=== PATIENT | male | born 1955 | race Caucasian/White ===

== ENCOUNTER 2019-06-25 08:34 | Day surgery (SDC) | payer BC ==
[2019-06-25] MEDS ORDERED: Midazolam 1 MG/ML 2 ML SDV IV ONE (08:35)
[2019-06-25] MEDS ORDERED: Propofol 200 MG/20 ML SDV IV ONE (08:35)
[2019-06-25] MEDS ORDERED: Sodium Chloride 0.9% 10 ML Syringe FLUSH PRN (09:00)
[2019-06-25] MEDS: Lactated Ringers 1,000 ML IV SCH (09:30)
--- NOTE | 2019-06-25 11:09 | PCM.OPNOTE ---
- General Post-Op/Procedure Note Date of Surgery/Procedure: 06/25/19 Operative Procedure(s): c scope with bx Findings: diverticulosis transverse colon polyp Pre Op Diagnosis: screening Post-Op Diagnosis: diverticulosis. transverse colon polyp Anesthesia Technique: MAC Primary Surgeon: Fletcher Gaytan Anesthesia Provider: Yarely Terrell Pathology: transverse colon polyp Complications: None Condition: Good Free Text/Narrative:: see dictation
--- NOTE | 2019-06-25 17:38 | OR ---
DATE OF OPERATION: 06/25/2019 SURGEON: Fletcher Gaytan MD PROCEDURE PERFORMED: Colonoscopy, cold forceps biopsy. PREOPERATIVE DIAGNOSIS: Colon cancer screening. POSTOPERATIVE DIAGNOSIS: Transverse colon polyp. INDICATIONS FOR PROCEDURE: This is a 63-year-old white male, referred for screening colonoscopy. He offered and accepted same. DESCRIPTION OF OPERATION: After an excellent IV sedation was administered, digital rectal exam was performed. No marked abnormality was noted. Flexible colonoscope was inserted and advanced to the cecum. The prep was excellent. The following findings were noted: Ascending colon, unremarkable. Transverse colon, a small polypoid lesion, biopsied and sent for permanent. Descending colon, unremarkable. Sigmoid, scattered diverticulosis. Rectum and anus, unremarkable. Colon was deflated. Scope was removed. The patient tolerated the procedure well and was taken to Recovery. Results by letter. /[id number] /ALYSA
== END 2019-06-25 11:55 | disposition home or self-care (01) ==
LOC: FB.SDS 08:34
PROVIDERS: ATTEND Surgery
DX: Z12.11 Encounter for screening for malignant neoplasm of colon (principal); D12.3 Benign neoplasm of transverse colon; K57.30 Diverticulosis of large intestine without perforation or abscess without bleeding; I10 Essential (primary) hypertension; E78.2 Mixed hyperlipidemia; E03.9 Hypothyroidism, unspecified; I25.10 Atherosclerotic heart disease of native coronary artery without angina pectoris; K21.9 Gastro-esophageal reflux disease without esophagitis; Z87.891 Personal history of nicotine dependence; Z79.82 Long term (current) use of aspirin; Z79.01 Long term (current) use of anticoagulants; Z79.899 Other long term (current) drug therapy; Z95.5 Presence of coronary angioplasty implant and graft
CPT/HCPCS: 88305; J2250; J2704; J7120

== ENCOUNTER 2023-10-12 06:15 | Day surgery (SDC) | payer MEDICARE, BC ==
[~2023-10-12 06:15] MED LIST: Sodium Chloride 0.9% 10 ML Syringe FLUSH PRN
[2023-10-12] MEDS ORDERED: Propofol 200 MG/20 ML SDV IV ONE (06:16)
[2023-10-12] MEDS ORDERED: Midazolam 1 MG/ML 2 ML SDV IV ONE (06:16)
[2023-10-12] MEDS ORDERED: Lidocaine 2% 100 MG/5 ML Syringe IVPUSH ONE (06:16)
[2023-10-12] MEDS: Lactated Ringers 1,000 ML IV SCH (07:10)
[2023-10-12] MEDS: Simethicone Drops 40 MG/0.6 ML 30 ML Bottle PO ONE (07:38)
== END 2023-10-12 09:20 | disposition home or self-care (01) ==
LOC: FB.SDS 06:15
PROVIDERS: ATTEND Surgery
DX: K21.00 Gastro-esophageal reflux disease with esophagitis, without bleeding (principal); K31.89 Other diseases of stomach and duodenum; K29.80 Duodenitis without bleeding; K44.9 Diaphragmatic hernia without obstruction or gangrene; K57.30 Diverticulosis of large intestine without perforation or abscess without bleeding; D50.9 Iron deficiency anemia, unspecified; I10 Essential (primary) hypertension; E78.5 Hyperlipidemia, unspecified; Z87.891 Personal history of nicotine dependence; Z79.899 Other long term (current) drug therapy
CPT/HCPCS: 00813; 43239; 45378; 88305; 88342; A9270; J2250; J2704; J7120

== ENCOUNTER 2023-10-20 11:54 | Emergency (ER) | payer MEDICARE, BC ==
[2023-10-20] MEDS: Nitroglycerin 0.4 MG Tab.SL SL PRN (12:17)
[2023-10-20] MEDS: Aspirin 81 MG Tab.Chew PO ONE (12:18)
[2023-10-20 12:23] LABS: HEMATOCRIT 34.4 % (38.3-50.1); HEMOGLOBIN 10.2 g/dL (12.9-17.7); MEAN CORPUSCULAR HEMOGLOBIN 21.3 pg (27.0-33.3); MEAN CORPUSCULAR HGB CONC 29.7 g/dL (28.7-35.3); MEAN CORPUSCULAR VOLUME 71.5 fL (80.8-98.7); MEAN PLATELET VOLUME 6.9 fL (6.7-11.0); PLATELET COUNT,PLT 475 x10(3)uL (117-477); RED BLOOD CELL COUNT 4.81 x10(6)uL (3.90-5.90); RED CELL DISTRIBUTION WIDTH 26.2 % (12.4-15.0); WHITE BLOOD CELL COUNT,WBC 13.8 x10-3/uL (3.2-10.1)
[2023-10-20 12:25] LABS: BLOOD UREA NITROGEN,BUN 21 mg/dL (7-18); BUN/CREATININE RATIO 13.1 (9-20); CALCIUM 9.5 mg/dL (8.6-10.2); CARBON DIOXIDE,CO2 25 mmol/L (21-32); CHLORIDE,CL 102 mmol/L (100-110); CREATININE 1.6 mg/dL (0.70-1.30); ESTIMATED GFR 47 mL/min (>60); GLUCOSE RANDOM 79 mg/dL (80-116); POTASSIUM,K 3.9 mmol/L (3.5-5.3); SODIUM,NA 140 mmol/L (135-145)
[2023-10-20 12:31] LABS: A/G RATIO 0.8; ALANINE AMINOTRANSFERASE,ALT 23 U/L (12-36); ALBUMIN 3.4 g/dL (3.2-4.6); ALKALINE PHOSPHATASE 84 IU/L (56-112); ASPARTATE AMNIOTRANSFERASE,AST 20 IU/L (5-25); BILIRUBIN TOTAL 0.6 mg/dL (0.1-1.3); PROTEIN TOTAL,TP 7.5 g/dL (6.0-8.0)
[2023-10-20 12:39] LABS: BAND PERCENT MAN 5 % (0-6); EOSINOPHILS PERCENT MAN 1 % (0-5); LYMPHOCYTES PERCENT MAN 6 % (13-37); MONOCYTES PERCENT MAN 1 % (4-12); POIKILOCYTOSIS MODERATE; SEG NEUTROPHILS PERCENT MAN 87 % (46-82)
[2023-10-20] MEDS: Alum Hydroxide/Mag Hydroxide 15 ML, Lidocaine 2% 15 ML PO ONE (13:03)
[2023-10-20] MEDS: Morphine 4 MG/ML VIAL IVPUSH ONE (13:22)
[2023-10-20 13:25] LABS: INR 0.97 (1.00-1.24); PROTHROMBIN TIME 10.1 sec (9.0-11.1)
[2023-10-20] MEDS: Lidocaine 2% Viscous Solution 15 ML UD ONE (13:25)
[2023-10-20 13:27] LABS: PTT,PARTIAL THROMBOPLSTIN TIME 24.2 SECONDS (24.4-33.2)
[2023-10-20] MEDS: Sodium Chloride 0.9% 1,000 ML IV SCH (13:27)
[2023-10-20] MEDS: Nitroglycerin/D5W 25 MG/250 ML BOTTLE IV SCH (13:28)
[2023-10-20] MEDS: Iopamidol 755 Mg/ML 100 ML Bottle IV SCH (14:05)
[2023-10-20] MEDS: Lidocaine 2% Viscous Solution 15 ML UD PO ONE (18:00)
== END 2023-10-20 17:55 ==
LOC: FB.ED 11:54
DX: I25.10 Atherosclerotic heart disease of native coronary artery without angina pectoris (principal); K27.9 Peptic ulcer, site unspecified, unspecified as acute or chronic, without hemorrhage or perforation; K44.9 Diaphragmatic hernia without obstruction or gangrene; E78.00 Pure hypercholesterolemia, unspecified; I10 Essential (primary) hypertension; K21.9 Gastro-esophageal reflux disease without esophagitis; E03.9 Hypothyroidism, unspecified; I25.2 Old myocardial infarction; Z79.899 Other long term (current) drug therapy; Z95.5 Presence of coronary angioplasty implant and graft
CPT/HCPCS: 36415; 43752; 71045; 71275; 80053; 83880; 84484; 85025; 85379; 85610; 85730; 93005; 93010; 96365; 96366; 96375; 99285; 99285-25; A9270-GY; J2270; J2305; J7030; Q9967

== ENCOUNTER 2023-12-31 15:07 | Emergency (ER) | payer MEDICARE, BC | END 2023-12-31 16:30 | disposition left against medical advice (07) | LOC: FB.ED 15:07 | DX: Z53.21 Procedure and treatment not carried out due to patient leaving prior to being seen by health care provider (principal) ==